=== PATIENT | male | born 1955 | race African-American/Black ===

== ENCOUNTER 2023-12-27 20:16 | Inpatient (IN) | payer MEDICARE ==
[~2023-12-27] VITALS: Ht 175.3 cm; Wt 72.6 kg
[2023-12-27 20:00] VITALS: BP 128/87; PULSE 94; RESP 18; TEMP 98.9
[2023-12-27] MEDS ORDERED: GUAIFENESIN 200MG/10ML SUGAR FREE UDC PO PRN (20:30)
[2023-12-27] MEDS ORDERED: IPRATROPIUM/ALBUTEROL 0.5-3(2.5)MG/3ML NEB HHN PRN (20:30)
[2023-12-27] MEDS ORDERED: CLONIDINE 0.1MG TABLET PO PRN (20:30)
[2023-12-27] MEDS ORDERED: KETOROLAC 15MG/ML VIAL IV PRN (20:30)
[2023-12-27] MEDS ORDERED: HYDRALAZINE HCL 10MG TABLET PO PRN (20:30)
[2023-12-27] MEDS ORDERED: ONDANSETRON HCL 4MG/2ML INJ IV PRN (20:30)
[2023-12-27] MEDS: ATORVASTATIN CALCIUM 40MG TABLET PO SCH (21:13)
[2023-12-27] MEDS: HYDROCODONE/ACETAMINOPHEN 5/325MG TABLET PO PRN (21:13)
[2023-12-28 06:31] LABS: BASOPHILS % 0.6 % (0.0-2.0); HEMATOCRIT. 36.6 % (42.0-52.0); HEMOGLOBIN. 12.1 g/dL (14.0-18.0); LYMPHOCYTES % 21.9 % (20.0-50.0); MEAN CORPUSCULAR HEMOGLOBIN 27.7 pg (28.0-32.0); MEAN CORPUSCULAR HGB CONC 33.1 g/dL (31.0-37.0); MEAN CORPUSCULAR VOLUME 83.8 fL (80.0-94.0); MEAN PLATELET VOLUME 6.9 fl (7.4-10.4); MONOCYTES % 8.9 % (2.0-8.0); NEUTROPHILS % 63.6 % (40.0-76.0); PLATELET 257 x1000/uL (130-400); RED BLOOD CELL COUNT 4.37 mill/uL (4.7-6.1); RED CELL DISTRIBUTION WIDTH 12.7 % (11.6-14.6); WHITE BLOOD COUNT 6.6 x1000/uL (4.5-11.0)
[2023-12-28 06:33] LABS: CHLORIDE 106 mEq/L (98-107); POTASSIUM 4.4 mEq/L (3.5-5.1); SODIUM 138 mEq/L (136-145)
[2023-12-28 06:37] LABS: CALCIUM 9.9 mg/dL (8.7-10.4); CARBON DIOXIDE 25 mEq/L (21-32)
[2023-12-28 06:42] LABS: ALANINE AMINOTRANSFERASE 26 IU/L (10-49); CREATININE 1.1 mg/dL (0.6-1.3); GLUCOSE 93 mg/dL (70-105); UREA NITROGEN BLOOD 19 mg/dL (9-23)
[2023-12-28 06:44] LABS: ALBUMIN 4.1 g/dL (3.2-4.8); ASPARTATE AMINOTRANSFERASE 23 IU/L (<34); BILIRUBIN TOTAL 0.4 mg/dL (0.1-1.0); PREALBUMIN 18.8 mg/dl (10.0-40.0)
[2023-12-28 06:45] LABS: PROTEIN TOTAL 6.9 g/dL (6.0-8.3)
[2023-12-28 08:00] VITALS: BP 113/78; PULSE 86; RESP 18; TEMP 98.1
[2023-12-28] MEDS: CLOPIDOGREL 75MG TABLET PO SCH (09:11)
[2023-12-28] MEDS: ASPIRIN 81MG EC TABLET PO SCH (09:11)
[2023-12-28 19:36] VITALS: BP 141/86; PULSE 95; RESP 20; TEMP 97.7
[2023-12-29 06:53] LABS: CHLORIDE 104 mEq/L (98-107); SODIUM 137 mEq/L (136-145)
[2023-12-29 06:54] LABS: BASOPHILS % 0.5 % (0.0-2.0); CARBON DIOXIDE 25 mEq/L (21-32); EOSINOPHILS % 6.8 % (0.0-5.0); HEMATOCRIT. 36.1 % (42.0-52.0); HEMOGLOBIN. 11.9 g/dL (14.0-18.0); LYMPHOCYTES % 27.1 % (20.0-50.0); MEAN CORPUSCULAR HEMOGLOBIN 27.9 pg (28.0-32.0); MEAN CORPUSCULAR HGB CONC 33.1 g/dL (31.0-37.0); MEAN CORPUSCULAR VOLUME 84.3 fL (80.0-94.0); MEAN PLATELET VOLUME 6.7 fl (7.4-10.4); MONOCYTES % 9.2 % (2.0-8.0); NEUTROPHILS % 56.4 % (40.0-76.0); PLATELET 254 x1000/uL (130-400); RED BLOOD CELL COUNT 4.28 mill/uL (4.7-6.1); RED CELL DISTRIBUTION WIDTH 12.3 % (11.6-14.6); WHITE BLOOD COUNT 6.6 x1000/uL (4.5-11.0)
[2023-12-29 06:58] LABS: IRON 34 ug/dL (65-175)
[2023-12-29 06:59] LABS: AMMONIA < 17 uMol/L (<32); CREATININE 1.1 mg/dL (0.6-1.3); GLUCOSE 137 mg/dL (70-105); UREA NITROGEN BLOOD 19 mg/dL (9-23)
[2023-12-29 07:01] LABS: ALANINE AMINOTRANSFERASE 22 IU/L (10-49); ALBUMIN 4.1 g/dL (3.2-4.8); ASPARTATE AMINOTRANSFERASE 15 IU/L (<34); BILIRUBIN TOTAL 0.4 mg/dL (0.1-1.0); PROTEIN TOTAL 6.8 g/dL (6.0-8.3); TOTAL IRON BINDING CAPACITY 172 ug/dl (250-425)
[2023-12-29 07:02] LABS: THYROID STIMULATING HORMONE 0.84 uIU/mL (0.55-4.78)
[2023-12-29 07:03] LABS: FERRITIN 113 ng/mL (22-322); FOLIC ACID (FOLATE) SERUM 8.48 ng/mL (>5.38)
[2023-12-29 07:04] LABS: VITAMIN B12 SERUM 423 pg/mL (211-911)
[2023-12-29 08:00] VITALS: BP 121/82; PULSE 87; RESP 20; TEMP 98.7
[2023-12-29] MEDS ORDERED: NALOXONE HCL 0.4MG/ML VIAL IV PRN (14:45)
[2023-12-29] MEDS: CYANOCOBALAMIN 1000MCG/ML VIAL IM SCH (16:53)
[2023-12-29 20:00] VITALS: BP 125/93; PULSE 91; RESP 18; TEMP 98.1
[2023-12-30] VITALS: BP 128/87; PULSE 94; RESP 18; TEMP 98.9
[2023-12-30 08:00] VITALS: BP 122/87; PULSE 94; RESP 18; TEMP 97.3
[2023-12-30] MEDS: ENOXAPARIN 40MG/0.4ML SYR SUBCUT SCH (08:24)
[2023-12-30 20:00] VITALS: BP 131/98; PULSE 100; RESP 18; TEMP 97.9
[2023-12-31 08:00] VITALS: BP 124/87; PULSE 81; RESP 19; TEMP 96.6
[2023-12-31 20:00] VITALS: BP 130/88; PULSE 84; RESP 18; TEMP 98.6
[2024-01-01 08:00] VITALS: BP 137/98; PULSE 83; RESP 18; TEMP 97.9
[2024-01-01 20:00] VITALS: BP 142/98; PULSE 101; RESP 20; TEMP 97.4
[2024-01-02] MEDS: HYDROCODONE/ACETAMINOPHEN 5/325MG TABLET PO PRN (04:54)
[2024-01-02 08:00] VITALS: BP 127/85; PULSE 89; RESP 20; TEMP 97.4
[2024-01-02] MEDS: ACETAMINOPHEN 325MG TABLET PO PRN (09:18)
[2024-01-02 20:00] VITALS: BP 128/82; PULSE 101; RESP 19; TEMP 97.6
[2024-01-02] MEDS: BACLOFEN 10MG TABLET PO SCH (22:02)
[2024-01-03 08:00] VITALS: BP 101/71; PULSE 100; RESP 18; TEMP 97.5
[2024-01-03] MEDS: DOCUSATE SODIUM 100MG CAPSULE PO PRN (08:37)
[2024-01-03 20:00] VITALS: BP 120/81; PULSE 86; RESP 18; TEMP 98.7
[2024-01-04 08:00] VITALS: BP 120/86; PULSE 111; RESP 18; TEMP 97.3
[2024-01-04] MEDS: ACETAMINOPHEN 325MG TABLET PO PRN (16:25)
[2024-01-04 20:00] VITALS: BP 116/56; PULSE 72; RESP 18; TEMP 97
[2024-01-05 08:00] VITALS: BP 118/83; PULSE 89; RESP 19; TEMP 98.3
[2024-01-05] MEDS ORDERED: TRIAMCINOLONE ACETONIDE 40MG/ML 1ML VIAL IM NR (14:10)
[2024-01-05] MEDS ORDERED: ETHYL CHLORIDE CAN TOP SCH (14:30)
[2024-01-05] MEDS ORDERED: LIDOCAINE HCL 1% 10 MG/ML 10ML VIAL INJ NR (15:00)
[2024-01-05 20:00] VITALS: BP 136/82; PULSE 78; RESP 22; TEMP 98.4
[2024-01-06 08:00] VITALS: BP 121/80; PULSE 69; RESP 18; TEMP 97
[2024-01-06 20:00] VITALS: BP 107/70; PULSE 68; RESP 18; TEMP 97.7
[2024-01-07 06:52] LABS: CHLORIDE 103 mEq/L (98-107); POTASSIUM 4.5 mEq/L (3.5-5.1); SODIUM 138 mEq/L (136-145)
[2024-01-07 06:53] LABS: CALCIUM 10.3 mg/dL (8.7-10.4); CARBON DIOXIDE 25 mEq/L (21-32)
[2024-01-07 06:58] LABS: GLUCOSE 98 mg/dL (70-105); UREA NITROGEN BLOOD 18 mg/dL (9-23)
[2024-01-07 06:59] LABS: ALBUMIN 4.4 g/dL (3.2-4.8)
[2024-01-07 07:00] LABS: ALANINE AMINOTRANSFERASE 29 IU/L (10-49); ASPARTATE AMINOTRANSFERASE 20 IU/L (<34); BILIRUBIN TOTAL 0.4 mg/dL (0.1-1.0); PROTEIN TOTAL 7.5 g/dL (6.0-8.3)
[2024-01-07 07:13] LABS: BASOPHILS % 0.4 % (0.0-2.0); EOSINOPHILS % 2.7 % (0.0-5.0); HEMATOCRIT. 36.9 % (42.0-52.0); HEMOGLOBIN. 12.4 g/dL (14.0-18.0); LYMPHOCYTES % 21.6 % (20.0-50.0); MEAN CORPUSCULAR HEMOGLOBIN 27.9 pg (28.0-32.0); MEAN CORPUSCULAR HGB CONC 33.6 g/dL (31.0-37.0); MEAN CORPUSCULAR VOLUME 82.9 fL (80.0-94.0); MEAN PLATELET VOLUME 6.9 fl (7.4-10.4); NEUTROPHILS % 67.3 % (40.0-76.0); PLATELET 337 x1000/uL (130-400); RED BLOOD CELL COUNT 4.45 mill/uL (4.7-6.1); RED CELL DISTRIBUTION WIDTH 12.6 % (11.6-14.6); WHITE BLOOD COUNT 9.1 x1000/uL (4.5-11.0)
[2024-01-07 08:00] VITALS: BP 117/76; PULSE 89; RESP 20; TEMP 97.6
[2024-01-08 08:00] VITALS: BP 120/88; PULSE 84; RESP 17; TEMP 97.2
[2024-01-09 08:00] VITALS: BP 121/89; PULSE 77; RESP 19; TEMP 97.9
[2024-01-09] MEDS ORDERED: NALOXONE HCL 0.4MG/ML VIAL IV PRN (12:15)
[2024-01-09] MEDS: HYDROCODONE/ACETAMINOPHEN 5/325MG TABLET PO PRN (15:48)
[2024-01-09] MEDS: HYDROCODONE/ACETAMINOPHEN 10/325MG TABLET PO PRN (18:14)
[2024-01-09 20:00] VITALS: BP 114/78; PULSE 67; RESP 18; TEMP 98.3
[2024-01-10 08:00] VITALS: BP 109/70; PULSE 84; RESP 19; TEMP 98.1
[2024-01-10 12:31] VITALS: BP 109/70; PULSE 84; TEMP 98.1; O2SAT 98
== END 2024-01-10 20:15 | DRG 65 ==
LOC: UNDODISIN 01-09 15:55
PROVIDERS: ADMIT Physical Medicine & Rehabilitation Spinal Cord Injury Medicine; ATTEND Hospitalist
DX: I63.9 Cerebral infarction, unspecified (principal); G81.94 Hemiplegia, unspecified affecting left nondominant side; N17.9 Acute kidney failure, unspecified; E55.9 Vitamin D deficiency, unspecified; I10 Essential (primary) hypertension; D64.9 Anemia, unspecified; M75.02 Adhesive capsulitis of left shoulder; G89.0 Central pain syndrome; F32.A Depression, unspecified; R53.1 Weakness; R47.01 Aphasia; R79.89 Other specified abnormal findings of blood chemistry; R53.81 Other malaise; R25.2 Cramp and spasm; W18.30XD Fall on same level, unspecified, subsequent encounter; M24.572 Contracture, left ankle; Z79.82 Long term (current) use of aspirin; Z87.891 Personal history of nicotine dependence
CPT/HCPCS: 36415; 70551; 73030; 80053; 82140; 82306; 82607; 82728; 82746; 83036; 83540; 83550; 84134; 84443; 85025; 92523; 92610; 97110; 97112; 97116; 97150; 97162; 97166; 97530; 97535; 97542; 97760; A4565; J1650; J3301; J3420; J3490